=== PATIENT | female | born 1965 | race Caucasian/White ===

== ENCOUNTER 2020-08-10 09:25 | Day surgery (SDC) | payer OTHER ==
[~2020-08-10] VITALS: Ht 167.6 cm; Wt 99.6 kg
[~2020-08-10 09:25] MED LIST: ASCO500 PO; Acetyl L-Carni500 MG PO; COQ PO; FISH OIL 1,2001 EAC7 PO; IODPOTL; MULTIVITAMINS1 EAC3 PO; Vitamin D2000 UNIT PO; ZINC15 PO; [UNRECOGNIZED DRUG - OTHER] PO
--- NOTE | 2020-08-10 10:09 | NUR ---
08/10/20 [id number] DALIA BURGER ONE ATTEMPT BY GILL IN RH MISSED ONE SUCCESSFUL IN RAC BY GILL PT TOW
== END 2020-08-10 11:25 | disposition home or self-care (01) ==
LOC: ORSCSDS 09:25
PROVIDERS: Internal Medicine Gastroenterology
PROC: 0DJD8ZZ Inspection of Lower Intestinal Tract, Via Natural or Artificial Opening Endoscopic (ICD-10-PCS; principal; 2020-08-10 10:45)
DX: Z12.11 Encounter for screening for malignant neoplasm of colon (principal); Z80.0 Family history of malignant neoplasm of digestive organs; E78.5 Hyperlipidemia, unspecified; I10 Essential (primary) hypertension; K64.8 Other hemorrhoids
CPT/HCPCS: J2704; J7120